=== PATIENT | male | born 1985 | race American Indian/Alaskan Native ===

== ENCOUNTER 2016-06-20 13:02 | Emergency (ER) | payer MEDICARE, MEDICAID ==
[2016-06-20 13:18] VITALS: BMI 40.5
[2016-06-20 13:26] VITALS: RESP 16; TEMP 97.9
--- NOTE | 2016-06-20 13:58 | ED PDOC ---
Arrival/HPI - General Chief Complaint: Medical Clearance Time Seen by Provider: 06/20/16 13:11 Historian: Patient - History of Present Illness Narrative History of Present Illness (Text): 06/20/16 13:54 31 y/o male, psychiatric history including schizophrenia, nkda, here for the administration of the paliperidone which is 234mg prescribed by his own doctor as he is not available today due to the schedule problem. Pt. stated that he has no homicidal or suicidal ideation, no auditory or visual hallucination, no recent uri or illness, no fever or chills, feeling well. Past Medical History - Provider Review Nursing Documentation Reviewed: Yes - Infectious Disease Hx of Infectious Diseases: None - Tetanus Immunization Tetanus Immunization: Unknown - Past Medical History Past Medical History: No Previous - Cardiac Hx Cardiac Disorders: Yes Hx Hypertension: Yes - Pulmonary Hx Respiratory Disorders: No - Neurological Hx Neurological Disorder: No - HEENT Hx HEENT Disorder: No - Renal Hx Renal Disorder: No - Endocrine/Metabolic Hx Endocrine Disorders: No - Hematological/Oncological Hx Blood Disorders: No - Integumentary Hx Dermatological Disorder: No - Musculoskeletal/Rheumatological Hx Back Pain: Yes Hx Fractures: Yes - Gastrointestinal Hx Gastrointestinal Disorders: No Other/Comment: obesity - Genitourinary/Gynecological Hx Genitourinary Disorders: No - Psychiatric Hx Anxiety: Yes Hx Depression: Yes Hx Panic Disorder: Yes Hx Schizophrenia: Yes Hx Substance Use: Yes (occassionally) Other/Comment: "explosive anger d/o" - Surgical History Hx Orthopedic Surgery: Yes (rt ACL) - Anesthesia Hx Anesthesia: Yes Hx Anesthesia Reactions: No Hx Malignant Hyperthermia: No - Suicidal Assessment Feels Threatened In Home Enviroment: No Family/Social History - Physician Review Nursing Documentation Reviewed: Yes Family/Social History: Unknown Family HX Smoking Status: Light Smoker < 10 Cigarettes Daily Hx Alcohol Use: Yes Hx Substance Use: Yes (occassionally) Substance used: marijuana Hx Substance Use Treatment: No Allergies/Home Meds Allergies/Adverse Reactions: Allergies No Known Allergies Allergy (Verified 06/20/16 13:17) Home Medications: Home Meds Medication Instructions Recorded Confirmed Benztropine [Cogentin] 2 mg PO BID 06/27/14 11/14/15 Cyanocobalamin [Vitamin B12 1000 1,000 mcg PO DAILY 06/27/14 11/14/15 mcg Tab] Cyclobenzaprine HCl 10 mg PO PRN PRN 06/27/14 11/14/15 [Cyclobenzaprine] DULoxetine [Cymbalta] 60 mg PO DAILY 06/27/14 11/14/15 Paliperidone Palmitate [Invega 78 mg IN QWK 06/27/14 11/14/15 Sustenna] QUEtiapine [Seroquel XR] 300 mg PO HS 06/27/14 11/14/15 QUEtiapine [Seroquel] 100 mg PO BID 06/27/14 11/14/15 Simvastatin [Zocor] 40 mg PO DAILY 06/27/14 11/14/15 Hydrochlorothiazide [Microzide] 25 mg PO DAILY 11/14/15 11/14/15 Ibuprofen [Motrin Tab] 600 mg PO Q8H PRN 11/14/15 11/14/15 Omeprazole [Omeprazole] 40 mg PO DAILY 11/14/15 11/14/15 Review of Systems - Review of Systems Constitutional: absent: Fatigue, Fevers Respiratory: absent: SOB, Cough, Sputum Cardiovascular: absent: Chest Pain Gastrointestinal: absent: Abdominal Pain, Diarrhea, Nausea, Vomiting Skin: absent: Rash, Pruritis, Skin Lesions, Laceration, Abscess, Ulcer, Cellulitis Neurological: absent: Headache, Dizziness, Focal Weakness, Gait Changes, Speech Changes, Facial Droop, Disequilibrium, Seizure Physical Exam Vital Signs Reviewed: Yes Vital Signs Temp Pulse Resp BP Pulse Ox 06/20/16 13:25 97.9 F 77 16 128/78 99 Temperature: Afebrile Blood Pressure: Normal Pulse: Regular Respiratory Rate: Normal Appearance: Positive for: Well-Appearing, Non-Toxic, Comfortable Pain Distress: None Mental Status: Positive for: Alert and Oriented X 3 - Systems Exam Head: Present: Atraumatic, Normocephalic Pupils: Present: PERRL Extroacular Muscles: Present: EOMI Neck: Present: Trachea Midline. No: Meningeal Signs, MIDLINE TENDERNESS, Lymphadenopathy Respiratory/Chest: Present: Clear to Auscultation, Good Air Exchange. No: Respiratory Distress, Accessory Muscle Use Cardiovascular: Present: Regular Rate and Rhythm, Normal S1, S2. No: Murmurs Abdomen: Present: Normal Bowel Sounds. No: Tenderness, Distention, Peritoneal Signs Upper Extremity: Present: Normal Inspection. No: Cyanosis, Edema Lower Extremity: Present: Normal Inspection. No: Edema Neurological: Present: GCS=15, Speech Normal, Motor Func Grossly Intact, Gait Normal, Memory Normal Skin: Present: Warm, Dry, Normal Color. No: Rashes Psychiatric: Present: Alert, Oriented x 3, Normal Insight, Normal Concentration Medical Decision Making ED Course and Treatment: 06/20/16 13:56 -OBIEE LEAD DEVELOPER Mackenzie called the [facility] which confirmed this is the correct dose and medication as the patient is suppose to be receiving. -medication given and the patient has no adverse or allergic reaction. -Discharge home with education on follow up with your own pmd and psychiatrist within 2 days, return to the ER for any new or worsening signs or symptoms - PA / FERMENTER WINE / Resident Statement MD/DO has reviewed & agrees with the documentation as recorded. Disposition/Present on Arrival - Present on Arrival Any Indicators Present on Arrival: No History of DVT/PE: No History of Uncontrolled Diabetes: No Urinary Catheter: No History of Decub. Ulcer: No History Surgical Site Infection Following: None - Disposition Have Diagnosis and Disposition been Completed?: Yes Diagnosis: Medication administered Disposition: HOME/ ROUTINE Disposition Time: 13:58 Patient Plan: Discharge Patient Problems: Current Active Problems Problem Status Diagnosed Medication administered Acute Condition: GOOD Additional Instructions: Discharge home with education on follow up with your own pmd and psychiatrist within 2 days, return to the ER for any new or worsening signs or symptoms Referrals: Deidre Siddiqui MD [Primary Care Provider] - Follow up with primary [facility] [Outside] - Follow up with primary Forms: WORK NOTE
[2016-06-20 14:13] VITALS: BP 126/70; PULSE 74; O2SAT 100
== END 2016-06-20 14:14 | disposition home or self-care (01) ==
LOC: ED 13:02
DX: Z79.899 Other long term (current) drug therapy (principal); F20.9 Schizophrenia, unspecified

== ENCOUNTER 2016-08-17 22:09 | Emergency (ER) | payer MEDICARE, MEDICAID ==
[2016-08-17 22:39] VITALS: BP 139/83; PULSE 65; RESP 18; TEMP 98.5; O2SAT 98; BMI 29.2
--- NOTE | 2016-08-17 22:56 | ED PDOC ---
Arrival/HPI <Pedro Christiansen - Last Filed: 08/17/16 23:02> - General Historian: Patient - History of Present Illness Time/Duration: > month Symptom Onset: Gradual Symptom Course: Intermittent <Maty Alford - Last Filed: 08/18/16 01:22> - General Chief Complaint: Upper Extremity Problem/Injury Time Seen by Provider: 08/17/16 22:22 - History of Present Illness Narrative History of Present Illness (Text): 08/17/16 22:52 31-year-old male presents today with right shoulder pain that started after he tried to pull open a door. Patient denies numbness weakness or tingling in the extremity. Patient also complaining of a 2-3 month history of intermittent dizziness. Patient states for the past few months he's been having tingling sensation in his fingers of both upper arms which have been occurring intermittently. Patient states sometimes he sleeps wrong in his fingers fall asleep. Patient states he feels like his arms up and twitching a lot lately. Patient states he's been under a lot of stress lately. States he hasn't taken his psychiatric medications in 4 days. Denies chest pain or shortness of breath. No medications have been taken for pain at home. No fevers or chills. No other complaints (Maty Alford) Past Medical History - Provider Review Nursing Documentation Reviewed: Yes - Travel History Have you recently traveled outside [place] w/in the past 3 mons?: No - Infectious Disease Hx of Infectious Diseases: None - Tetanus Immunization Tetanus Immunization: Unknown - Past Medical History Past Medical History: No Previous - Cardiac Hx Cardiac Disorders: Yes Hx Hypertension: Yes - Pulmonary Hx Respiratory Disorders: No - Neurological Hx Neurological Disorder: No - HEENT Hx HEENT Disorder: No - Renal Hx Renal Disorder: No - Endocrine/Metabolic Hx Endocrine Disorders: No - Hematological/Oncological Hx Blood Disorders: No - Integumentary Hx Dermatological Disorder: No - Musculoskeletal/Rheumatological Hx Back Pain: Yes Hx Fractures: Yes - Gastrointestinal Hx Gastrointestinal Disorders: No Other/Comment: obesity - Genitourinary/Gynecological Hx Genitourinary Disorders: No - Psychiatric Hx Anxiety: Yes Hx Depression: Yes Hx Panic Disorder: Yes Hx Schizophrenia: Yes Hx Substance Use: Yes (occassionally) Other/Comment: "explosive anger d/o" - Surgical History Hx Orthopedic Surgery: Yes (rt ACL) - Anesthesia Hx Anesthesia: Yes Hx Anesthesia Reactions: No Hx Malignant Hyperthermia: No - Suicidal Assessment Feels Threatened In Home Enviroment: No <Maty Alford - Last Filed: 08/18/16 01:22> Family/Social History - Physician Review Nursing Documentation Reviewed: Yes Family/Social History: Unknown Family HX Smoking Status: Light Smoker < 10 Cigarettes Daily Hx Alcohol Use: Yes Hx Substance Use: Yes (occassionally) Substance used: marijuana Hx Substance Use Treatment: No <Maty Alford - Last Filed: 08/18/16 01:22> Allergies/Home Meds <Pedro Christiansen - Last Filed: 08/17/16 23:02> <Maty Alford - Last Filed: 08/18/16 01:22> Allergies/Adverse Reactions: Allergies No Known Allergies Allergy (Verified 06/20/16 13:17) Home Medications: Home Meds Medication Instructions Recorded Confirmed Benztropine [Cogentin] 2 mg PO BID 06/27/14 11/14/15 Cyanocobalamin [Vitamin B12 1000 1,000 mcg PO DAILY 06/27/14 11/14/15 mcg Tab] Cyclobenzaprine HCl 10 mg PO PRN PRN 06/27/14 11/14/15 [Cyclobenzaprine] DULoxetine [Cymbalta] 60 mg PO DAILY 06/27/14 11/14/15 Paliperidone Palmitate [Invega 78 mg IN QWK 06/27/14 11/14/15 Sustenna] QUEtiapine [Seroquel XR] 300 mg PO HS 06/27/14 11/14/15 QUEtiapine [Seroquel] 100 mg PO BID 06/27/14 11/14/15 Simvastatin [Zocor] 40 mg PO DAILY 06/27/14 11/14/15 Hydrochlorothiazide [Microzide] 25 mg PO DAILY 11/14/15 11/14/15 Ibuprofen [Motrin Tab] 600 mg PO Q8H PRN 11/14/15 11/14/15 Omeprazole [Omeprazole] 40 mg PO DAILY 11/14/15 11/14/15 Review of Systems - Review of Systems Constitutional: absent: Fatigue, Fevers Respiratory: absent: SOB, Cough Cardiovascular: absent: Chest Pain, Palpitations Gastrointestinal: absent: Abdominal Pain, Nausea, Vomiting Musculoskeletal: Arthralgias (right shoulder pain). absent: Back Pain, Neck Pain Skin: absent: Rash, Pruritis Neurological: Dizziness. absent: Headache, Speech Changes, Facial Droop <Maty Alford - Last Filed: 08/18/16 01:22> Physical Exam Vital Signs Reviewed: Yes Temperature: Afebrile Blood Pressure: Normal Pulse: Regular Respiratory Rate: Normal Appearance: Positive for: Well-Appearing, Non-Toxic, Comfortable Pain Distress: None Mental Status: Positive for: Alert and Oriented X 3 - Systems Exam Head: Present: Atraumatic Pupils: Present: PERRL Extroacular Muscles: Present: EOMI Mouth: Present: Moist Mucous Membranes Neck: Present: Normal Range of Motion Respiratory/Chest: Present: Clear to Auscultation, Good Air Exchange. No: Respiratory Distress, Accessory Muscle Use Cardiovascular: Present: Regular Rate and Rhythm, Normal S1, S2. No: Murmurs Abdomen: No: Tenderness Upper Extremity: Present: Normal Inspection, Normal ROM, NORMAL PULSES, Tenderness (right shoulder; + ttp over anterior aspect of right shoulder; no edema, no erythema; no ecchymosis; full rom of shoulder; sensation and distal pulses intact. cap refill <2. ) Lower Extremity: Present: Normal ROM, Neurovascularly Intact. No: CALF TENDERNESS Neurological: Present: GCS=15, Speech Normal, Motor Func Grossly Intact, Normal Sensory Function, Normal Cerebellar Funct, Gait Normal Skin: Present: Warm, Dry, Normal Color Psychiatric: Present: Alert, Oriented x 3 <Maty Alford - Last Filed: 08/18/16 01:22> Vital Signs Temp Pulse Resp BP Pulse Ox 08/17/16 22:19 98.5 F 65 18 139/83 98 Medical Decision Making <Pedro Christiansen - Last Filed: 08/17/16 23:02> <Maty Alford - Last Filed: 08/18/16 01:22> ED Course and Treatment: 08/17/16 22:56 31yr old male with right shoulder pain s/p pulling on a door. xray of right shoulder; no fracture. motrin given for pain. pt also with dizziness and intermittent twitching and parasthesias in both hands x 2 + months; head ct: FINDINGS: BRAIN: No significant acute abnormality identified. No acute hemorrhage seen within the brain. No acute extra-axial fluid collections visualized. No evidence of significant mass effect within the brain. Normal donaldson-white matter differentiation. VENTRICLES: No evidence of significant hydrocephalus. BONES/JOINTS: No acute fractures or other acute bony abnormality noted. SOFT TISSUES: No acute abnormality of the visualized soft tissues is seen. SINUSES: Visualized paranasal sinuses appear clear. MASTOID AIR CELLS: Mastoid air cells appear clear. IMPRESSION: - No acute findings seen within the brain. - See above for remaining findings. cbc wnl cmp wnl mag; wnl pt reassessment: pt non toxic well appearing; no distress; stable vitals. discussed all results in depth with patient; advised f/u with pmd and neurologist. Patient verbalizes understanding of discharge instructions and need for immediate followup. all aspects of this case were discussed the attending of record. Impression: Shoulder pain, paresthesias Motrin every 6 hours as needed for pain follow up with the primary care physician within the next 2 days follow up with the neurologist within the next 2 days increase fluids return if symptoms worsen,persist or if new symptoms develop. (Maty Alford) - Lab Interpretations Lab Results: 08/17/16 23:45 08/17/16 23:45 Lab Results 08/17/16 23:45: WBC 5.6, RBC 4.82, Hgb 14.2, Hct 42.2, MCV 87.6, MCH 29.5, MCHC 33.6, RDW 12.8, Plt Count 160, MPV 8.8, Gran % 51.6, Lymph % (Auto) 38.3 H, [place] % (Auto) 8.6 H, Eos % (Auto) 1.1 L, Baso % (Auto) 0.4, Gran # 2.87, Lymph # 2.1, [place] # 0.5, Eos # 0.1, Baso # 0.02 08/17/16 23:45: Sodium 139, Potassium 3.8, Chloride 103, Carbon Dioxide 29, Anion Gap 11, BUN 11, Creatinine 1.0, Est GFR ( Amer) > 60, Est GFR (Non- Af Amer) > 60, Random Glucose 74, Calcium 9.0, Magnesium 1.9, Total Bilirubin 0.4, AST 19, ALT 21, Alkaline Phosphatase 61, Total Protein 7.2, Albumin 3.9, Globulin 3.3, Albumin/Globulin Ratio 1.2 - RAD Interpretation Radiology Orders: 08/17/16 22:30 HEAD W/O CONTRAST [CT] Stat SHOULDER RIGHT [RAD] Stat - Medication Orders Current Medication Orders: Discontinued Medications Ibuprofen (Motrin Tab) 600 mg PO STAT STA Stop: 08/17/16 23:13 Last Admin: 08/17/16 23:51 Dose: 600 mg - PA / FORMS DESIGNER / Resident Statement / has reviewed & agrees with the documentation as recorded. / has examined the patient and agrees with the treatment plan. <Pedro Christiansen - Last Filed: 08/17/16 23:02> Disposition/Present on Arrival <Pedro Christiansen - Last Filed: 08/17/16 23:02> - Present on Arrival Any Indicators Present on Arrival: No History of DVT/PE: No History of Uncontrolled Diabetes: No Urinary Catheter: No History of Decub. Ulcer: No History Surgical Site Infection Following: None - Disposition Have Diagnosis and Disposition been Completed?: Yes Disposition Time: 01:20 Patient Plan: Discharge <Maty Alford - Last Filed: 08/18/16 01:22> - Disposition Diagnosis: Shoulder pain, Paresthesia Disposition: HOME/ ROUTINE Patient Problems: Current Active Problems Problem Status Onset Paresthesia Acute Shoulder pain Acute Condition: GOOD Additional Instructions: Motrin every 6 hours as needed for pain follow up with the primary care physician within the next 2 days follow up with the neurologist within the next 2 days increase fluids return if symptoms worsen,persist or if new symptoms develop. Referrals: Sravan Enrique MD [Staff Provider] - Follow up with primary Deidre Siddiqui MD [Family Provider] - Follow up with primary Cj Mishra III, MD [Medical Doctor] - Follow up with primary
[2016-08-18] LABS: ADD MANUAL DIFF? NO
[2016-08-18 00:05] LABS: BASO # 0.02 K/mm3 (0.0-2.0); BASO % 0.4 % (0.0-3.0); EOS # 0.1 (0.0-0.7); EOS % 1.1 % (1.5-5.0); GRAN # 2.87 (1.4-6.5); GRAN % 51.6 % (50.0-68.0); HEMATOCRIT 42.2 % (42.0-52.0); LYMPH # 2.1 (1.2-3.4); LYMPH % 38.3 % (22.0-35.0); MEAN CELL VOLUME 87.6 fL (80.0-105.0); MEAN CORPUSCULAR HEMOGLOBIN 29.5 pg (25.0-35.0); MEAN CORPUSCULAR HGB CONC 33.6 g/dl (31.0-37.0); MEAN PLATELET VOLUME 8.8 fl (7.0-11.0); MONO # 0.5 (0.1-0.6); MONO % 8.6 % (1.0-6.0); PLATELET COUNT 160 10^3/uL (120.0-450.0); RED CELL DISTRIBUTION WIDTH 12.8 % (11.5-14.5); WHITE BLOOD COUNT 5.6 10^3/ul (4.5-11.0)
[2016-08-18 00:13] LABS: ALB/GLOB RATIO 1.2 (1.1-1.8); ALKALINE PHOSPHATASE 61 U/L (38-133); ALT/SGPT 21 U/L (7-56); AST/SGOT 19 U/L (15-59); BILIRUBIN,TOTAL 0.4 mg/dL (0.2-1.3); BLOOD UREA NITROGEN 11 mg/dL (7-21); CARBON DIOXIDE 29 mmol/L (21-33); CHLORIDE 103 mmol/L (98-107); GFR AFRICAN-AMERICAN > 60; GLUCOSE,RANDOM 74 mg/dL (70-110); MAGNESIUM 1.9 mg/dL (1.7-2.2); POTASSIUM 3.8 mmol/L (3.6-5.0); SODIUM 139 mmol/L (132-148); TOTAL PROTEIN 7.2 g/dL (5.8-8.3)
--- NOTE | 2016-08-18 01:06 | CT ---
EXAM: CT Head Without Intravenous Contrast CLINICAL HISTORY: 31 years old, male; Signs and symptoms; Dizziness; Additional info: Dizziness, arm twitching for months TECHNIQUE: Axial computed tomography images of the head/brain without intravenous contrast. This CT exam was performed using one or more of the following dose reduction techniques: automated exposure control, adjustment of the mA and/or kV according to patient size, and/or use of iterative reconstruction technique. EXAM DATE/TIME: 08/17/2016 10:30 PM COMPARISON: No relevant prior studies available. FINDINGS: BRAIN: No significant acute abnormality identified. No acute hemorrhage seen within the brain. No acute extra-axial fluid collections visualized. No evidence of significant mass effect within the brain. Normal donaldson-white matter differentiation. VENTRICLES: No evidence of significant hydrocephalus. BONES/JOINTS: No acute fractures or other acute bony abnormality noted. SOFT TISSUES: No acute abnormality of the visualized soft tissues is seen. SINUSES: Visualized paranasal sinuses appear clear. MASTOID AIR CELLS: Mastoid air cells appear clear. IMPRESSION: - No acute findings seen within the brain. - See above for remaining findings.
--- NOTE | 2016-08-18 09:59 | RAD ---
PROCEDURE: Radiographs of the Right Shoulder HISTORY: Pain COMPARISON: No prior. FINDINGS: BONES: Normal. No acute fracture or bone destruction. JOINTS: Normal. Glenohumeral and acromioclavicular joints preserved. No osteoarthritis. SOFT TISSUES: There is lobular calcification superolateral to the humeral head. OTHER FINDINGS: None. IMPRESSION: No acute fracture or dislocation. Suspect calcific tendinitis.
== END 2016-08-18 01:30 | disposition home or self-care (01) ==
LOC: ED 22:09
DX: R20.9 Unspecified disturbances of skin sensation (principal); M25.511 Pain in right shoulder; I10 Essential (primary) hypertension; Z72.0 Tobacco use

== ENCOUNTER 2016-12-23 22:10 | Emergency (ER) | payer MEDICARE, MEDICAID ==
[2016-12-23 22:13] VITALS: BP 125/78; PULSE 80; RESP 16; TEMP 98; O2SAT 98; BMI 42.8
--- NOTE | 2016-12-23 22:58 | ED PDOC ---
Arrival/HPI - General Chief Complaint: Lower Extremity Problem/Injury Time Seen by Provider: 12/23/16 22:16 Historian: Patient - History of Present Illness Narrative History of Present Illness (Text): 12/23/16 22:56 31yr old male presents today with a 2 month history of right great toe pain. pt denies numbness, weakness, tingling in the extremity. pt c/o intermittent sharp pain to the 1st toe, worse with ambulation. no medications taken for pain at home. pt denies trauma or injury. denies fever/chills. c/o pain to the 1st MCP. denies swelling or redness. no calf pain. no other complaints. Time/Duration: > month Symptom Onset: Gradual Symptom Course: Intermittent Quality: Aching Severity Level: Mild Past Medical History - Provider Review Nursing Documentation Reviewed: Yes - Travel History Have you recently traveled outside [place] w/in the past 3 mons?: No - Infectious Disease Hx of Infectious Diseases: None - Tetanus Immunization Tetanus Immunization: Unknown - Past Medical History Past Medical History: No Previous - Cardiac Hx Cardiac Disorders: Yes Hx Hypertension: Yes - Pulmonary Hx Respiratory Disorders: No - Neurological Hx Neurological Disorder: No - HEENT Hx HEENT Disorder: No - Renal Hx Renal Disorder: No - Endocrine/Metabolic Hx Endocrine Disorders: No - Hematological/Oncological Hx Blood Disorders: No - Integumentary Hx Dermatological Disorder: No - Musculoskeletal/Rheumatological Hx Back Pain: Yes Hx Fractures: Yes - Gastrointestinal Hx Gastrointestinal Disorders: No Other/Comment: obesity - Genitourinary/Gynecological Hx Genitourinary Disorders: No - Psychiatric Hx Anxiety: Yes Hx Depression: Yes Hx Panic Disorder: Yes Hx Schizophrenia: Yes Hx Substance Use: Yes (occassionally) Other/Comment: "explosive anger d/o" - Surgical History Hx Orthopedic Surgery: Yes (rt ACL) - Anesthesia Hx Anesthesia: Yes Hx Anesthesia Reactions: No Hx Malignant Hyperthermia: No - Suicidal Assessment Feels Threatened In Home Enviroment: No Family/Social History - Physician Review Nursing Documentation Reviewed: Yes Family/Social History: Unknown Family HX Smoking Status: Light Smoker < 10 Cigarettes Daily Hx Alcohol Use: Yes Hx Substance Use: Yes (occassionally) Substance used: marijuana Hx Substance Use Treatment: No Allergies/Home Meds Allergies/Adverse Reactions: Allergies No Known Allergies Allergy (Verified 06/20/16 13:17) Home Medications: Home Meds Medication Instructions Recorded Confirmed Benztropine [Cogentin] 2 mg PO BID 06/27/14 11/14/15 Cyanocobalamin [Vitamin B12 1000 1,000 mcg PO DAILY 06/27/14 11/14/15 mcg Tab] Cyclobenzaprine HCl 10 mg PO PRN PRN 06/27/14 11/14/15 [Cyclobenzaprine] DULoxetine [Cymbalta] 60 mg PO DAILY 06/27/14 11/14/15 Paliperidone Palmitate [Invega 78 mg IN QWK 06/27/14 11/14/15 Sustenna] QUEtiapine [Seroquel XR] 300 mg PO HS 06/27/14 11/14/15 QUEtiapine [Seroquel] 100 mg PO BID 06/27/14 11/14/15 Simvastatin [Zocor] 40 mg PO DAILY 06/27/14 11/14/15 Hydrochlorothiazide [Microzide] 25 mg PO DAILY 11/14/15 11/14/15 Ibuprofen [Motrin Tab] 600 mg PO Q8H PRN 11/14/15 11/14/15 Omeprazole [Omeprazole] 40 mg PO DAILY 11/14/15 11/14/15 Review of Systems - Review of Systems Constitutional: absent: Fatigue, Fevers Respiratory: absent: SOB, Cough Cardiovascular: absent: Chest Pain, Palpitations Gastrointestinal: absent: Abdominal Pain, Nausea, Vomiting Musculoskeletal: Arthralgias. absent: Back Pain, Neck Pain Skin: absent: Rash, Pruritis Neurological: absent: Headache, Dizziness Psychiatric: absent: Anxiety, Depression, Suicidal Ideation Physical Exam Vital Signs Reviewed: Yes Vital Signs Temp Pulse Resp BP Pulse Ox 12/23/16 22:12 98 F 80 16 125/78 98 Temperature: Afebrile Blood Pressure: Normal Pulse: Regular Respiratory Rate: Normal Appearance: Positive for: Well-Appearing, Non-Toxic, Comfortable Pain Distress: None Mental Status: Positive for: Alert and Oriented X 3 - Systems Exam Head: Present: Atraumatic Mouth: Present: Moist Mucous Membranes Neck: Present: Normal Range of Motion Respiratory/Chest: Present: Clear to Auscultation, Good Air Exchange. No: Respiratory Distress, Accessory Muscle Use Cardiovascular: Present: Regular Rate and Rhythm, Normal S1, S2. No: Murmurs Upper Extremity: Present: Normal ROM Lower Extremity: Present: NORMAL PULSES, Normal ROM, Tenderness (right foot; no edema, no erythema; no ecchymosis; no warmth. full rom of foot and ankle. no ankle tenderness, no calf tenderness. + minimal tenderness over 1st MCP; no erythema. ), Neurovascularly Intact, Capillary Refill < 2 s. No: CALF TENDERNESS, Swelling, Erythema, Deformity, Temperature Abnormalties Neurological: Present: GCS=15 Skin: Present: Warm, Dry, Normal Color. No: Rashes Psychiatric: Present: Alert, Oriented x 3 Medical Decision Making ED Course and Treatment: 12/23/16 23:00Patient nontoxic well-appearing in no distress with stable vital signs X-rays of the foot: no fracture motrin po case given for ambulation. I discussed all results with patient advised to followup with the orthopedist/ technology architect within the next 2 days. Return if symptoms worsen persist or new symptoms develop pt verbalized understanding of d/c instructions and need for f/u with [employer] Consultant and PMD. Impression: Foot pain Motrin every 6 hours as needed for pain Rest, ice, compression, elevation Use cane for ambulation Followup with the orthopedist/technology architect within the next 2 days Followup with primary care physician within the next 2 days Return if symptoms worsen persist or if new symptoms develop - RAD Interpretation Radiology Orders: 12/23/16 22:23 FOOT RIGHT 3 VIEWS ROUTINE [RAD] Stat - Medication Orders Current Medication Orders: Discontinued Medications Ibuprofen (Motrin Tab) 600 mg PO STAT STA Stop: 12/23/16 22:28 Last Admin: 12/23/16 22:55 Dose: 600 mg [facility] Pain/Vitals Document 12/23/16 22:55 AR (Rec: 12/23/16 22:55 AR [id number]) Pain Reassessment Is This A Pain ReAssessment? No Sleep Is patient sleeping during reassessment? No Presence of Pain Presence of Pain Yes Pain Scale Used Pain Scale Used Numeric Location Left, Right or Bilateral Right Pain Location Body Site 1st Toe Disposition/Present on Arrival - Present on Arrival Any Indicators Present on Arrival: No History of DVT/PE: No History of Uncontrolled Diabetes: No Urinary Catheter: No History of Decub. Ulcer: No History Surgical Site Infection Following: None - Disposition Have Diagnosis and Disposition been Completed?: Yes Diagnosis: Foot pain Disposition: HOME/ ROUTINE Disposition Time: 23:08 Patient Plan: Discharge Condition: GOOD Discharge Instructions (ExitCare): Arthralgia (ED) Additional Instructions: Motrin every 6 hours as needed for pain Rest, ice, compression, elevation Use cane for ambulation Followup with the orthopedist/technology architect within the next 2 days Followup with primary care physician within the next 2 days Return if symptoms worsen persist or if new symptoms develop Prescriptions: Ibuprofen [Motrin] 600 mg PO Q6H PRN #20 tab PRN Reason: pain/fever reduction Referrals: Deidre Siddiqui MD [Primary Care Provider] - Follow up with primary Keke Hooks DPM [Staff Provider] - Follow up with primary Wilfredo Hobson DPM [Staff Provider] - Follow up with primary Earl Stewart MD [Staff Provider] - Follow up with primary Forms: [employer] ([place])
--- NOTE | 2016-12-24 08:53 | RAD ---
PROCEDURE: Right Foot Radiographs. HISTORY: right great toe pain COMPARISON: None. FINDINGS: BONES: No acute fracture noted. Well corticated ossifications project near the medial and lateral malleolus on this foot exam -old osseous avulsions- unfused accessory ossification centers are some considerations. Possible tiny 2 mm sesamoid bones at the 1st tarsal metatarsal articulation. JOINTS: First metatarsal-phalangeal joint arthrosis SOFT TISSUES: Normal. OTHER FINDINGS: None. IMPRESSION: No acute fracture or dislocation. Chronic findings at the ankle level. First metatarsal-phalangeal joint arthrosis
== END 2016-12-23 23:25 | disposition home or self-care (01) ==
LOC: ED 22:10
DX: M79.671 Pain in right foot (principal); F17.210 Nicotine dependence, cigarettes, uncomplicated; I10 Essential (primary) hypertension

== ENCOUNTER 2017-06-21 07:05 | Emergency (ER) | payer MEDICARE, MEDICAID ==
[2017-06-21 07:05] VITALS: BMI 42.8
[2017-06-21 07:15] VITALS: TEMP 97.9
--- NOTE | 2017-06-21 07:47 | ED PDOC ---
Arrival/HPI - General Chief Complaint: Lower Extremity Problem/Injury Time Seen by Provider: 06/21/17 07:28 Historian: Patient - History of Present Illness Narrative History of Present Illness (Text): 06/21/17 07:31 pt p/w + 3 days onset of worsening right lower/lateral ankle pain, NO trauma, pt states walking causes more pain, as a result pt is limping; pt states he has been running numerous errands recently attending to his chores as well as to his girlfriend; pt states right medial great toe is also hurting; pt states pain is severe when walking; pt states no numbness/tingling; pt states no fever/chills/sweats, no cp/sob/palpitations, no abd pain, no n/v, no urinary/ bowel changes, no fall/trauma/sick contact, no travel; no other complaints pt is here for further eval pt states he has not been taking his chol medications over the last few weeks PCP: Chen Time/Duration: < week (3days) Symptom Onset: Sudden Symptom Course: Worsening Quality: Stabbing, Cramping Severity Level: Severe Activities at Onset: Other (walking/bearing weight) Context: Walking, Exertion, Home Past Medical History - Provider Review Nursing Documentation Reviewed: Yes - Travel History Have you recently traveled outside [place] w/in the past 3 mons?: No - Past History Past History: No Previous - Infectious Disease Hx of Infectious Diseases: None - Tetanus Immunization Tetanus Immunization: Unknown - Past Medical History Past Medical History: No Previous - Cardiac Hx Cardiac Disorders: Yes Hx Hypertension: Yes - Pulmonary Hx Respiratory Disorders: No - Neurological Hx Neurological Disorder: No - HEENT Hx HEENT Disorder: No - Renal Hx Renal Disorder: No - Endocrine/Metabolic Hx Endocrine Disorders: No - Hematological/Oncological Hx Blood Disorders: No - Integumentary Hx Dermatological Disorder: No - Musculoskeletal/Rheumatological Hx Back Pain: Yes Hx Fractures: Yes - Gastrointestinal Hx Gastrointestinal Disorders: No Other/Comment: obesity - Genitourinary/Gynecological Hx Genitourinary Disorders: No - Psychiatric Hx Anxiety: Yes Hx Depression: Yes Hx Panic Disorder: Yes Hx Schizophrenia: Yes Hx Substance Use: Yes (occassionally) Other/Comment: "explosive anger d/o" - Surgical History Hx Orthopedic Surgery: Yes (rt ACL) - Anesthesia Hx Anesthesia: Yes Hx Anesthesia Reactions: No Hx Malignant Hyperthermia: No - Suicidal Assessment Feels Threatened In Home Enviroment: No Family/Social History - Physician Review Nursing Documentation Reviewed: Yes Family/Social History: No Known Family HX Smoking Status: Light Smoker < 10 Cigarettes Daily Hx Alcohol Use: Yes Frequency of alcohol use: Socially Hx Substance Use: Yes (occassionally) Substance used: marijuana Hx Substance Use Treatment: No Allergies/Home Meds Allergies/Adverse Reactions: Allergies No Known Allergies Allergy (Verified 06/21/17 07:15) Home Medications: Home Meds Medication Instructions Recorded Confirmed Atorvastatin [Lipitor] 10 mg PO DAILY 06/21/17 06/21/17 Review of Systems - Review of Systems Constitutional: Normal Eyes: Normal ENT: Normal Respiratory: Normal Cardiovascular: Normal Gastrointestinal: Normal Genitourinary Male: Normal Musculoskeletal: Other (right foot/ankle pain) Skin: Normal Neurological: Normal Endocrine: Normal Hemo/Lymphatic: Normal Psychiatric: Normal Physical Exam Vital Signs Reviewed: Yes Vital Signs Temp Pulse Resp BP Pulse Ox 06/21/17 09:05 78 18 135/88 98 06/21/17 07:11 97.9 F 18 L 78 H 136/90 99 Temperature: Afebrile Blood Pressure: Hypertensive Pulse: Regular Respiratory Rate: Normal Appearance: Positive for: Well-Appearing, Non-Toxic, Uncomfortable, Other ( uncomfortable, alert/awake, GCS = 15, oriented x 3, NAD, resting in bed) Pain Distress: None Mental Status: Positive for: Alert and Oriented X 3 - Systems Exam Head: Present: Atraumatic, Normocephalic Pupils: Present: PERRL, Other (visual field intact b/l, no nystagmus, no photophobia) Extroacular Muscles: Present: EOMI Conjunctiva: Present: Normal Ears: Present: Normal Mouth: Present: Moist Mucous Membranes, Normal Teeth Pharnyx: Present: Normal Nose (External): Present: Atraumatic Nose (Internal): Present: Normal Inspection Neck: Present: Normal Range of Motion, Trachea Midline. No: Meningeal Signs, MIDLINE TENDERNESS Respiratory/Chest: Present: Clear to Auscultation, Good Air Exchange. No: Respiratory Distress, Accessory Muscle Use Cardiovascular: Present: Regular Rate and Rhythm, Normal S1, S2. No: Murmurs Abdomen: Present: Normal Bowel Sounds, Other (well nourished/morbid obese male, no focal tenderness, no masses/rebound/guarding/rigidity, no ortiz's sign, no mcburney's point tenderness) Back: Present: Normal Inspection. No: CVA Tenderness, Midline Tenderness Upper Extremity: Present: Normal Inspection, Normal ROM, NORMAL PULSES, Neurovascularly Intact, Capillary Refill < 2s Lower Extremity: Present: Normal Inspection, NORMAL PULSES, Normal ROM, Neurovascularly Intact, Other (+ right distal/lateral ankle mild tenderness, right proximal/dorsum aspect of foot mild tenderness, no fluctuance/induration/ skin erythema; + gross deformities noted to right ankle (old ankle injury); decr ROM to right ankle; + right base of great toe bunion, no fluctaunce/ induration/tenderness noted on exam) Neurological: Present: GCS=15, CN II-XII Intact, Speech Normal Skin: Present: Warm, Normal Color, Other (cap refill < 1sec, no ulcerations, no petechiae) Psychiatric: Present: Alert, Oriented x 3 Medical Decision Making ED Course and Treatment: 06/21/17 07:45 Impression: right foot/ankle pain, atrumatic i have consider all the differential diagnosis regarding pt's chief medical complaints/clinical findings, including but are not limited to: right foot/ ankle pain, atrumatic A/P: right foot/ankle pain, atrumatic - xray - crutches - supportive care - observe/reevaluation 06/21/17 0930 pt felt some improvement pt is made aware of his medical results pt is encouraged min weight bearing and avoid prolonged standing/persistent walking pt is encouraged RICE txt pt will f/u as directed pt will be discharged home Re-evaluation Time: 09:20 Reassessment Condition: Improving,but remains with symptoms - RAD Interpretation Narrative RAD Interpretations (Text): 06/21/17 08:25 Ankle X-Ray shows abnormality to talus to distal tibial joint, however appears as chronic injury, and no acute fractures noted. 06/21/2017 09:37 Foot X-Ray IMPRESSION: Mild hallux valguss deformity with overgorwth head 1st metatarsal and DJD 1st MTP joint with apparaent degenerative changes subjacent sesamoid bones as well. Narrative osteoarthritis tibiotalar articulation. Dictator: Caleb Delgado DO ADDENDUM: Addendum to the Joint and Impression sections of this report should read as follows: Significant deformity of the tibiotalar articulation possibly secondary to old trauma with secondary degenerative osteoarthritis. Changes are seen to much better advantage on the dedicated ankle radiographs. [ Addendum Report Added by Caleb Gross MD at 06/21/2017 09:42:36 ] PROCEDURE: Radiographs of the right foot 06/21/2017. HISTORY: Right lower great toe region pain COMPARISON: Comparison made with concurrent radiographs of the right ankle. Comparison also made with radiographs right foot 12/23/2016. FINDINGS: BONES: No evidence of acute displaced fracture nor dislocation. The osseous structures intact. Mild hallux valgus formal with overgrowth of the head of the 1st metatarsal and DJD 1st MTP joint. . JOINTS: Mild hallux valgus formal with overgrowth of the head of the 1st metatarsal and DJD 1st MTP joint. . There also appear to be degenerative changes involving the subjacent sesamoid bones. Degenerative changes talocalcaneal articulation SOFT TISSUES: Normal. OTHER FINDINGS: None. IMPRESSION: Mild hallux valgus deformity with overgrowth head 1st metatarsal and DJD 1st MTP joint with apparent degenerative changes subjacent sesamoid bones as well. Narrative osteoarthritis tibiotalar articulation Radiology Orders: 06/21/17 07:29 ANKLE RIGHT 3 VIEWS ROUTINE [RAD] Stat FOOT RIGHT 3 VIEWS ROUTINE [RAD] Stat Investment Executive: ED Physician, Radiologist - Medication Orders Current Medication Orders: Discontinued Medications Ibuprofen (Motrin Tab) 600 mg PO STAT STA Stop: 06/21/17 07:32 Last Admin: 06/21/17 07:41 Dose: 600 mg MAR Pain/Vitals Document 06/21/17 07:41 EWO (Rec: 06/21/17 07:42 PAWAN [id number]) Pain Reassessment Is This A Pain ReAssessment? No Sleep Is patient sleeping during reassessment? No Presence of Pain Presence of Pain Yes Pain Scale Used Pain Scale Used Numeric Location Left, Right or Bilateral Right Pain Location Body Site Ankle Description Intermittent Intensity 3 Scale Used Numeric Disposition/Present on Arrival - Present on Arrival Any Indicators Present on Arrival: No History of DVT/PE: No History of Uncontrolled Diabetes: No Urinary Catheter: No History of Decub. Ulcer: No History Surgical Site Infection Following: None - Disposition Have Diagnosis and Disposition been Completed?: Yes Diagnosis: Ankle strain, Arthritis, Right foot strain Disposition: HOME/ ROUTINE Disposition Time: 09:30 Patient Plan: Discharge Condition: STABLE Discharge Instructions (ExitCare): Osteoarthritis, Ankle Sprain (DC), Muscle Strain (DC), Arthritis and Exercise Print Language: ICELANDIC Additional Instructions: Make sure to see your doctor in 1-2 days DRINK PLENTY OF FLUIDS take your medications as prescribed AVOID prolonged standing/walking, avoid heavy lifting keep your ankle in the splint/melba wrap ambulate with Cane/Crutches RETURN TO ED IF worse pain, cant breath, persistent vomiting, high fever >101- 102 for hours, altered behavior, slurr speech, facial changes, focal weakness ( arm/leg or both), unable to urinate, heavy/persistent bleeding, passing out, chest pain, or other medical emergencies Prescriptions: Ibuprofen [Motrin] 600 mg PO QID PRN #30 tab PRN Reason: Pain, Mild (1-3) oxyCODONE/Acetaminophen [Percocet 5/325 mg Tab] 1 tab PO TID PRN #10 tab PRN Reason: Pain, Moderate (4-7) Referrals: Deidre Siddiqui MD [Primary Care Provider] - Follow up with primary Liam Tapia DO [Staff Provider] - Follow up with primary Forms: [employer] ([place])
--- NOTE | 2017-06-21 09:39 | RAD ---
PROCEDURE: Radiographs of the right foot 06/21/2017. HISTORY: Right lower great toe region pain COMPARISON: Comparison made with concurrent radiographs of the right ankle. Comparison also made with radiographs right foot 12/23/2016. FINDINGS: BONES: No evidence of acute displaced fracture nor dislocation. The osseous structures intact. Mild hallux valgus formal with overgrowth of the head of the 1st metatarsal and DJD 1st MTP joint. . JOINTS: Mild hallux valgus formal with overgrowth of the head of the 1st metatarsal and DJD 1st MTP joint. . There also appear to be degenerative changes involving the subjacent sesamoid bones. Degenerative changes talocalcaneal articulation SOFT TISSUES: Normal. OTHER FINDINGS: None. IMPRESSION: Mild hallux valgus deformity with overgrowth head 1st metatarsal and DJD 1st MTP joint with apparent degenerative changes subjacent sesamoid bones as well. Narrative osteoarthritis tibiotalar articulation
[2017-06-21 10:03] VITALS: BP 135/88; PULSE 78; RESP 18; O2SAT 98
--- NOTE | 2017-06-21 11:34 | RAD ---
PROCEDURE: Right ankle dated 06/21/2017 Three views right ankle performed. HISTORY: Right ankle pain x 3 days. No recent trauma however history of fracture 1991 COMPARISON: Comparison made with prior radiographs of the right ankle dated 11/12/2013. FINDINGS: Marked deformity of the right ankle with tilting of the talar dome medially with angulation of nearly 45 degrees of. Significant degenerative osteoarthritis of the tibiotalar and tibiofibula as well as fibulotalar articulations. Sclerosis and productive changes are present. In no definitive evidence of acute displaced fracture nor dislocation. There may be some mild lateral soft tissue swelling. IMPRESSION: Marked deformity of the right ankle with tilting of the talar dome medially with angulation of nearly 45 degrees of. Significant degenerative osteoarthritis of the tibiotalar and tibiofibula as well as fibulotalar articulations. Sclerosis and productive changes are present. In no definitive evidence of acute displaced fracture nor dislocation. There may be some mild lateral soft tissue swelling.
== END 2017-06-21 10:02 | disposition home or self-care (01) ==
LOC: ED 07:05
DX: S96.911A Strain of unspecified muscle and tendon at ankle and foot level, right foot, initial encounter (principal); X50.0XXA Overexertion from strenuous movement or load, initial encounter; Y92.89 Other specified places as the place of occurrence of the external cause; M19.071 Primary osteoarthritis, right ankle and foot